=== PATIENT | male | born 1975 | race Hispanic/Latino ===

== ENCOUNTER 2020-02-11 15:22 | Emergency (ER) | payer SELFPAY ==
[2020-02-11] MEDS ORDERED: Ketorolac Tromethamine 60 MG/2 ML VIAL ONE (15:36)
[2020-02-11] MEDS ORDERED: Boostrix 0.5 ML (Tdap) VIAL ONE (15:36)
[2020-02-11] MEDS ORDERED: Bacitracin 1 PK ONE (15:40)
== END 2020-02-11 15:57 | disposition home or self-care (01) ==
LOC: BURERS 15:22
DX: T24.201A Burn of second degree of unspecified site of right lower limb, except ankle and foot, initial encounter (principal); T31.0 Burns involving less than 10% of body surface; Z23 Encounter for immunization; X08.8XXA Exposure to other specified smoke, fire and flames, initial encounter
CPT/HCPCS: 16020; 90471; 90715; 96372; J1885